=== PATIENT | female | born 1985 | race Caucasian/White ===

== ENCOUNTER 2020-02-13 06:19 | Outpatient (REF) | payer MEDICAID, SELFPAY | END 2020-02-13 06:20 | disposition home or self-care (01) | LOC: HO.LAB 06:19 | PROVIDERS: Visit Provider Internal Medicine | DX: Z20.828 Contact with and (suspected) exposure to other viral communicable diseases (principal) | CPT/HCPCS: C9803; U0003 ==

== ENCOUNTER 2021-02-17 11:11 | Outpatient (REF) | payer MEDICAID, SELFPAY ==
--- NOTE | ~2021-02-17 | US_ITS ---
EXAMINATION: US PELVIS CLINICAL INFORMATION: Abnormal bleeding. COMPARISON: None. TECHNIQUE: Ultrasound of the pelvis is performed using both transabdominal and transvaginal transducers along with Doppler. Transvaginal imaging is performed due to inadequate visualization transabdominally. FINDINGS: Uterus: The uterus is anteverted, anteflexed, and measures 10.1 x 4.9 x 5.0 cm. The double wall endometrial thickness is 7 mm. The uterus is smooth in contour and has normal myometrial echogenicity. No visible fibroid. There are a few nabothian cysts seen in the cervix. Adnexa: Both ovaries are visualized. There is normal color flow to the adnexa. There is no ovarian torsion. There is no pelvic ascites or fluid collection. Right ovary measures 3.3 x 2.7 x 2.1 cm and volume 9.8 mL. There is anechoic cyst measuring 1.4 x 1.0 x 0.9 cm. Left ovary measures 2.3 x 1.5 and 1.1 cm and volume 2.0 mL. There is no free fluid in the cul-de-sac. US/US pelvic and transvaginal IMPRESSION: Unremarkable uterus. Several nabothian cysts seen in the cervix. Cyst in right ovary, however, limited in visualization.
== END 2021-02-17 11:12 | disposition home or self-care (01) ==
LOC: HO.US 11:11
PROVIDERS: Visit Provider Advanced Practice Midwife
DX: N93.9 Abnormal uterine and vaginal bleeding, unspecified (principal)
CPT/HCPCS: 76830; 76856

== ENCOUNTER 2021-05-13 14:55 | Outpatient (REF) | payer MEDICAID, SELFPAY ==
--- NOTE | ~2021-05-13 | XR_ITS ---
EXAMINATION: XR SACRUM AND COCCYX CLINICAL INFORMATION: Low back pain COMPARISON: None TECHNIQUE: The sacrum and coccyx are imaged together in a total of 3 views. FINDINGS: There is normal bony mineralization. There is no fracture or destructive process. The SI joints and pubis show no diastases. There are no erosive changes or subchondral sclerosis. There is no presacral coccygeal soft tissue swelling appreciated. XR/XR sacrum coccyx min 2V IMPRESSION: Unremarkable examination.
== END 2021-05-13 14:56 | disposition home or self-care (01) ==
LOC: HO.XRAY 14:55
PROVIDERS: Visit Provider Internal Medicine
DX: M54.50 Low back pain, unspecified (principal)
CPT/HCPCS: 72220

== ENCOUNTER 2022-12-07 12:35 | Outpatient (REF) | payer MEDICAID, SELFPAY ==
[2022-12-07 13:54] LABS: Creatinine Urine 151.41 mg/dL; Microalbum/Creatinine Ratio Ur 181.6 ug/mg cr (<30)
[2022-12-07 14:00] LABS: Anion Gap 13 (12-20); Blood Urea Nitrogen 10 mg/dL (9-16); Carbon Dioxide 24 mmol/L (22-29); Chloride 104 mmol/L (96-108); Cholesterol 205 mg/dL (<200); Estimated Glomerular Filt Rate > 60; Glucose Random 176 mg/dL (60-115); HDL Cholesterol 35 mg/dL (>40); LDL Cholesterol Calculated 120 mg/dL (<100); Sodium 137 mmol/L (135-145); Triglycerides 251 mg/dL (<150)
== END 2022-12-07 12:36 | disposition home or self-care (01) ==
LOC: HO.HHCL 12:35
PROVIDERS: Visit Provider Nurse Practitioner Primary Care
DX: R80.9 Proteinuria, unspecified (principal); E11.69 Type 2 diabetes mellitus with other specified complication; E78.5 Hyperlipidemia, unspecified
CPT/HCPCS: 36415; 80048; 80061; 82043; 82570

== ENCOUNTER 2023-04-26 13:11 | Outpatient (REF) | payer MEDICAID, SELFPAY ==
--- NOTE | ~2023-04-26 | XR_ITS ---
EXAMINATION: XR SHOULDER, LEFT CLINICAL INFORMATION: Patient states left shoulder pain for 3 weeks no specific injury; however, she plays volleyball. COMPARISON: 09/17/2015 TECHNIQUE: 5 views of the left shoulder. Limited visualization due to technical factors. FINDINGS: Acromioclavicular and glenohumeral alignment is preserved. No abnormal soft tissue calcifications identified adjacent to the humeral head. Mild degenerative changes with hypertrophic change at the acromioclavicular joint. XR/XR shoulder LT min 2V IMPRESSION: Mild degenerative changes at the acromioclavicular joint.
== END 2023-04-26 13:12 | disposition home or self-care (01) ==
LOC: HO.HHCX 13:11
PROVIDERS: Visit Provider Registered Nurse
DX: M25.512 Pain in left shoulder (principal)
CPT/HCPCS: 73030

== ENCOUNTER 2023-09-07 12:37 | Outpatient (REF) | payer MEDICAID, SELFPAY ==
[2023-09-07 14:18] LABS: TSH reflex Free T4 < 0.01 uIU/mL (0.32-4.0)
[2023-09-07 14:56] LABS: Free T4 (Free Thyroxine) 1.31 ng/dL (0.71-1.85)
== END 2023-09-07 12:38 | disposition home or self-care (01) ==
LOC: HO.HHCL 12:37
PROVIDERS: Visit Provider Nurse Practitioner Primary Care
DX: E03.9 Hypothyroidism, unspecified (principal)
CPT/HCPCS: 36415; 84439; 84443

== ENCOUNTER 2023-12-20 10:42 | Outpatient (REF) | payer MEDICAID, SELFPAY ==
[2023-12-20 12:21] LABS: Syphilis Screen Nonreactive (Nonreactive)
[2023-12-20 12:23] LABS: HBS Num1 158.38 mIU/mL (0-7.99); HBc Num1 0.14 S/CO (0.00-0.79); HBsAGNum1 0.35 S/CO (0.00-0.99); HIV AB/AG Nonreactive (Nonreactive); HIV Num 1 0.04 S/CO (0.00-0.99); Hepatitis B Core Antibody Nonreactive (Nonreactive); Hepatitis B Surface Antigen Negative (Negative); ~Hepatitis B Surface Antibody REACTIVE (Nonreactive)
[2023-12-21 11:36] LABS: CT PCR NOT DETECTED (Not Detect.); NG PCR NOT DETECTED (Not Detect.)
[2023-12-21 13:13] LABS: Bacterial Vaginosis PCR POSITIVE (Negative); Candida Group PCR NOT DETECTED (Not Detect); Candida glab krusei PCR DETECTED (Not Detect); Trichomonas vaginalis PCR NOT DETECTED (Not Detect)
== END 2023-12-20 10:43 | disposition home or self-care (01) ==
LOC: HO.HHCL 10:42
PROVIDERS: Visit Provider Advanced Practice Midwife
DX: Z11.3 Encounter for screening for infections with a predominantly sexual mode of transmission (principal)
CPT/HCPCS: 0352U; 36415; 86704; 86706; 86780; 87340; 87389; 87491; 87591